=== PATIENT | female | born 1950 | race Caucasian/White ===

== ENCOUNTER 2020-05-27 06:30 | Emergency (ER) | payer OTHER, MEDICARE ==
[~2020-05-27] VITALS: Ht 165.1 cm; Wt 97.5 kg
[2020-05-27 06:50] VITALS: BP_SYST 161
[2020-05-27] MEDS ORDERED: AMLO5TAB4 PO (07:01)
[2020-05-27] MEDS ORDERED: FAMOTIDINE PF 20 MG/2 ML VIAL IVP ONE (07:15)
[2020-05-27] MEDS ORDERED: DIPHENHYDRAMINE INJ 50 MG/ML VIAL IVP ONE (07:15)
[2020-05-27] MEDS ORDERED: methylPREDNISolone SOD SUCC/PF 62.5 MG/ML VIAL IVP ONE (07:15)
[2020-05-27 07:35] LABS: BASOPHILS # (AUTO) 0.1 K/uL (0.0-0.2); BASOPHILS % (AUTO) 0.6 % (0.0-2.0); EOSINOPHILS # (AUTO) 0.1 K/uL (0.0-0.4); EOSINOPHILS % (AUTO) 0.8 % (0.0-4.0); HEMATOCRIT 40.6 % (36-48); HEMOGLOBIN 13.7 g/dL (12.0-16.0); LYMPHOCYTES # (AUTO) 0.9 K/uL (1.0-5.5); LYMPHOCYTES % (AUTO) 9.5 % (20.5-51.5); MEAN CORPUSCULAR HEMOGLOBIN 30 pg (27-31); MEAN CORPUSCULAR HGB CONC 34 % (32-36); MEAN CORPUSCULAR VOLUME 88 fL (79.0-98.0); MONOCYTES # (AUTO) 0.4 K/uL (0.0-1.0); NEUTROPHILS % (AUTO) 85.1 % (40.0-70.0); PLATELET COUNT (AUTO) 201 K/uL (130-430); RED BLOOD CELL COUNT(AUTO) 4.63 MIL/uL (4.2-6.2); RED CELL DISTRIBUTION WIDTH 13.4 % (9.0-15.0); WHITE BLOOD COUNT (AUTO) 9.4 K/uL (4.8-10.8)
[2020-05-27 07:53] LABS: CALCIUM 9.2 mg/dL (8.4-11.0); CREATININE 1.11 mg/dL (0.55-1.30); POTASSIUM 4.2 mmol/L (3.5-5.1)
[2020-05-27 07:57] LABS: TOTAL BILIRUBIN 0.4 mg/dL (0.0-1.0)
[2020-05-27] MEDS ORDERED: PRED20TA PO (08:59)
[2020-05-27] MEDS ORDERED: DIPH25CA83 PO (08:59)
[2020-05-27] MEDS ORDERED: FAMO20TA8 PO (08:59)
[2020-05-27] MEDS ORDERED: CEPH-568 PO (09:12)
[2020-05-27 09:16] VITALS: BP_SYST 136
== END 2020-05-27 09:16 | disposition home or self-care (01) ==
LOC: SED 06:30
DX: L03.114 Cellulitis of left upper limb (principal); T78.3XXA Angioneurotic edema, initial encounter; Z79.899 Other long term (current) drug therapy
CPT/HCPCS: 36415; 80053; 85025; 96374; 96375; 99284

== ENCOUNTER 2022-11-09 03:46 | Emergency (ER) | payer OTHER, MEDICARE ==
[~2022-11-09] VITALS: Ht 162.6 cm; Wt 95.3 kg
[~2022-11-09 03:46] MED LIST: AMLO5TAB4 PO; CEPH-568 PO; DIPH25CA83 PO; FAMO20TA8 PO; PRED20TA PO
[2022-11-09 03:54] VITALS: BP_SYST 179; PULSE 80; RESP 16; TEMP 97.9; O2SAT 98
--- NOTE | 2022-11-09 03:58 | NUR ---
Patient to ER bed [facility] to [facility] for evaluation. Side rails up. Report given to VIVIANE AIKEN(REG).
--- NOTE | 2022-11-09 03:58 | NUR ---
Patient ambulated to [facility] in stable condition. No distress noted.
--- NOTE | 2022-11-09 04:10 | NUR ---
Patient states she is flying out at 0730 this morning. Butt Maker informed ERMD Dr. Salter. states to resume writer he would not be able to see her for 2-3 hours, but will see her if she wanted to wait. Butt Maker consults with patient on the option of staying or consider going to a different hospital. Otherwise, see a Dr./ER at her destination. Patient decides to leave without being seen.
[2022-11-09 04:25] VITALS: BP_SYST 179; PULSE 80; RESP 16; TEMP 97.9; O2SAT 98
== END 2022-11-09 04:10 | disposition left against medical advice (07) ==
LOC: SED 03:46
DX: R06.02 Shortness of breath (principal); Z53.21 Procedure and treatment not carried out due to patient leaving prior to being seen by health care provider
CPT/HCPCS: 99281